=== PATIENT | male | born 1955 | race African-American/Black ===

== ENCOUNTER 2022-10-18 17:15 | Inpatient (IN) | payer MEDICAID ==
[~2022-10-18] VITALS: Ht 177.8 cm; Wt 119.4 kg
[~2022-10-18 17:15] MED LIST: FAMO20TA8 PO; FERR-63 PO; FURO40TA5 PO; HYDR-4135 PO; LIP40 PO; NEPVIT PO; POLY17PO3 PO; SENN1TAB35 PO; SEVE800T8 PO
[2022-10-18] MEDS ORDERED: LABETALOL 5MG/ML SYR 20 MG/4 ML SYRINGE IV ONE (18:15)
[2022-10-18] MEDS ORDERED: LABETALOL 5MG/ML SYR 20 MG/4 ML SYRINGE IV NR (20:45)
[2022-10-18 21:26] LABS: HEMATOCRIT. 26.3 % (42.0-52.0); HEMOGLOBIN. 8.5 g/dL (14.0-18.0); MEAN CORPUSCULAR HEMOGLOBIN 29.2 pg (28.0-32.0); MEAN CORPUSCULAR VOLUME 90.5 fL (80.0-94.0); MEAN PLATELET VOLUME 8.6 fl (7.4-10.4); PLATELET 179 x1000/uL (130-400); RED BLOOD CELL COUNT 2.91 mill/uL (4.7-6.1)
[2022-10-18 21:30] LABS: CHLORIDE 117 mEq/L (98-107)
[2022-10-18 22:19] LABS: PLATELET ESTIMATE NORMAL
[2022-10-19] VITALS (15 sets, daily range): BP systolic 117–192; BP diastolic 62–95
[2022-10-19] MEDS ORDERED: HYDRALAZINE 20MG/ML VIAL IV PRN (00:45)
[2022-10-19] MEDS ORDERED: NITROGLYCERIN OINT 1GM/INCH UDPKT TD NR (00:45)
[2022-10-19] MEDS ORDERED: DEXTROSE 50% WATER 50ML SYRINGE IV PRN (08:15)
[2022-10-19] MEDS: CLONIDINE 0.1MG TABLET PO PRN (09:06)
[2022-10-19] MEDS ORDERED: FUROSEMIDE 40MG/4ML VIAL IVP NR ×2 (10:30→15:00)
[2022-10-19] MEDS: BENAZEPRIL 10MG TABLET PO SCH ×2 (10:53→20:57)
[2022-10-19] MEDS: INSULIN LISPRO 100 UNITS/ML SUBCUT SCH ×3 (12:10→21:00)
[2022-10-19] MEDS: BLOOD SUGAR DIAGNOSTIC STRIP TEST SCH ×3 (12:28→21:24)
[2022-10-19] MEDS: SEVELAMER CARBONATE 800 MG TABLET PO SCH ×2 (13:19→17:34)
[2022-10-19] MEDS: DOCUSATE SODIUM 250MG CAPSULE PO SCH (17:34)
[2022-10-19] MEDS ORDERED: EPOETIN ALFA 2,000 UNIT/ML VIAL SUBCUT NR (21:00)
[2022-10-19] MEDS ORDERED: INFLUENZA VACCINE 05/PF 0.5 ML SYRINGE IM ONE (21:00)
[2022-10-20] VITALS: BP 150/65
[2022-10-20 00:42] LABS: HEPATITIS B SURFACE ANTIGEN NEGATIVE
[2022-10-20 04:00] VITALS: BP 141/65
[2022-10-20] MEDS: BLOOD SUGAR DIAGNOSTIC STRIP TEST SCH ×4 (06:02→20:18)
[2022-10-20] MEDS: INSULIN LISPRO 100 UNITS/ML SUBCUT SCH ×4 (06:13→20:18)
[2022-10-20] MEDS: SEVELAMER CARBONATE 800 MG TABLET PO SCH ×3 (07:10→18:27)
[2022-10-20 08:00] VITALS: BP 114/84
[2022-10-20] MEDS: FUROSEMIDE 40MG TABLET PO SCH ×2 (11:14→18:27)
[2022-10-20] MEDS: BENAZEPRIL 10MG TABLET PO SCH ×2 (11:14→20:32)
[2022-10-20] MEDS: DOCUSATE SODIUM 250MG CAPSULE PO SCH ×2 (11:14→18:27)
[2022-10-20 12:00] VITALS: BP 134/74
[2022-10-20 16:00] VITALS: BP 116/72
[2022-10-20 20:00] VITALS: BP 130/49
[2022-10-20] MEDS ORDERED: EPOETIN ALFA 2,000 UNIT/ML VIAL SUBCUT SCH (21:00)
[2022-10-21] VITALS: BP 128/62
[2022-10-21 04:00] VITALS: BP 130/49
[2022-10-21] MEDS: BLOOD SUGAR DIAGNOSTIC STRIP TEST SCH ×4 (05:42→20:42)
[2022-10-21] MEDS: INSULIN LISPRO 100 UNITS/ML SUBCUT SCH ×4 (05:42→20:43)
[2022-10-21] MEDS: SEVELAMER CARBONATE 800 MG TABLET PO SCH ×3 (06:14→17:27)
[2022-10-21 08:00] VITALS: BP 154/62
[2022-10-21] MEDS: DOCUSATE SODIUM 250MG CAPSULE PO SCH ×2 (09:38→17:27)
[2022-10-21] MEDS: BENAZEPRIL 10MG TABLET PO SCH ×2 (09:38→20:43)
[2022-10-21] MEDS: FUROSEMIDE 40MG TABLET PO SCH ×2 (09:38→17:27)
[2022-10-21 12:00] VITALS: BP 150/56
[2022-10-21 16:00] VITALS: BP 155/60
[2022-10-21] MEDS: DORZOLAMIDE 2% OPHTH 10 ML BOTTLE BOTHEYE SCH (17:27)
[2022-10-21] MEDS: TIMOLOL MALEATE 0.5% OPHTH DROPS 5ML EACHEYE SCH (17:27)
[2022-10-21 20:00] VITALS: BP 170/73
[2022-10-22] VITALS (8 sets, daily range): BP systolic 135–179; BP diastolic 51–89
[2022-10-22] MEDS: BLOOD SUGAR DIAGNOSTIC STRIP TEST SCH ×4 (06:03→21:09)
[2022-10-22] MEDS: INSULIN LISPRO 100 UNITS/ML SUBCUT SCH ×4 (06:03→21:00)
[2022-10-22] MEDS: SEVELAMER CARBONATE 800 MG TABLET PO SCH ×3 (08:48→17:28)
[2022-10-22] MEDS: FUROSEMIDE 40MG TABLET PO SCH ×2 (08:48→17:28)
[2022-10-22] MEDS: BENAZEPRIL 10MG TABLET PO SCH ×2 (08:48→21:00)
[2022-10-22] MEDS: DOCUSATE SODIUM 250MG CAPSULE PO SCH ×2 (08:48→17:28)
[2022-10-22] MEDS: DORZOLAMIDE 2% OPHTH 10 ML BOTTLE BOTHEYE SCH ×3 (08:49→17:29)
[2022-10-22] MEDS: TIMOLOL MALEATE 0.5% OPHTH DROPS 5ML EACHEYE SCH ×2 (08:49→21:09)
[2022-10-23] VITALS (12 sets, daily range): BP systolic 122–180; BP diastolic 39–91
[2022-10-23] MEDS: CLONIDINE 0.1MG TABLET PO PRN (03:22)
[2022-10-23] MEDS: INSULIN LISPRO 100 UNITS/ML SUBCUT SCH ×4 (05:54→21:21)
[2022-10-23] MEDS: BLOOD SUGAR DIAGNOSTIC STRIP TEST SCH ×4 (05:54→21:21)
[2022-10-23] MEDS: SEVELAMER CARBONATE 800 MG TABLET PO SCH ×3 (08:12→17:41)
[2022-10-23] MEDS: BENAZEPRIL 10MG TABLET PO SCH ×2 (09:30→21:21)
[2022-10-23] MEDS: DOCUSATE SODIUM 250MG CAPSULE PO SCH ×2 (09:30→17:41)
[2022-10-23] MEDS: FUROSEMIDE 40MG TABLET PO SCH ×2 (09:30→17:41)
[2022-10-23] MEDS: DORZOLAMIDE 2% OPHTH 10 ML BOTTLE BOTHEYE SCH ×3 (09:38→17:43)
[2022-10-23] MEDS: TIMOLOL MALEATE 0.5% OPHTH DROPS 5ML EACHEYE SCH ×2 (09:38→21:22)
[2022-10-24] VITALS (12 sets, daily range): BP systolic 116–166; BP diastolic 43–88
[2022-10-24] MEDS: BLOOD SUGAR DIAGNOSTIC STRIP TEST SCH ×2 (05:50→11:40)
[2022-10-24] MEDS: INSULIN LISPRO 100 UNITS/ML SUBCUT SCH ×2 (05:50→12:10)
[2022-10-24] MEDS: SEVELAMER CARBONATE 800 MG TABLET PO SCH ×2 (07:10→13:52)
[2022-10-24 08:55] LABS: EOSINOPHILS % 4.9 % (0.0-5.0); HEMATOCRIT. 25.7 % (42.0-52.0); HEMOGLOBIN. 8.5 g/dL (14.0-18.0); LYMPHOCYTES % 27.8 % (20.0-50.0); MEAN CORPUSCULAR HEMOGLOBIN 29.1 pg (28.0-32.0); MEAN CORPUSCULAR VOLUME 88.3 fL (80.0-94.0); MEAN PLATELET VOLUME 8.8 fl (7.4-10.4); MONOCYTES % 12.9 % (2.0-8.0); NEUTROPHILS % 53.4 % (40.0-76.0); PLATELET 214 x1000/uL (130-400); RED BLOOD CELL COUNT 2.91 mill/uL (4.7-6.1); RED CELL DISTRIBUTION WIDTH 16.4 % (11.6-14.6)
[2022-10-24] MEDS: DOCUSATE SODIUM 250MG CAPSULE PO SCH (08:57)
[2022-10-24] MEDS: DORZOLAMIDE 2% OPHTH 10 ML BOTTLE BOTHEYE SCH ×2 (08:57→13:48)
[2022-10-24] MEDS: FUROSEMIDE 40MG TABLET PO SCH (08:57)
[2022-10-24] MEDS: TIMOLOL MALEATE 0.5% OPHTH DROPS 5ML EACHEYE SCH (08:58)
[2022-10-24] MEDS: BENAZEPRIL 10MG TABLET PO SCH (09:00)
== END 2022-10-24 14:10 | disposition home or self-care (01) | DRG 720 ==
LOC: ER 18:29 → EDBEDREQTM 22:15 → EDBEDREQ 22:15 → 7EST 22:55 → EDBEDREQ 22:58 → ENRESERV 10-19 00:34
PROVIDERS: ADMIT Internal Medicine; ATTEND Internal Medicine
PROC: 5A1D70Z Performance of Urinary Filtration, Intermittent, Less than 6 Hours Per Day (ICD-10-PCS; principal; 2022-10-19)
PROC: 5A1D70Z Performance of Urinary Filtration, Intermittent, Less than 6 Hours Per Day (ICD-10-PCS; 2022-10-22)
PROC: 5A1D70Z Performance of Urinary Filtration, Intermittent, Less than 6 Hours Per Day (ICD-10-PCS; 2022-10-24)
DX: A41.89 Other specified sepsis (principal); J96.00 Acute respiratory failure, unspecified whether with hypoxia or hypercapnia; U07.1 COVID-19; I50.21 Acute systolic (congestive) heart failure; I13.2 Hypertensive heart and chronic kidney disease with heart failure and with stage 5 chronic kidney disease, or end stage renal disease; N18.6 End stage renal disease; E11.22 Type 2 diabetes mellitus with diabetic chronic kidney disease; R19.7 Diarrhea, unspecified; Z78.9 Other specified health status; Z91.119 Patient's noncompliance with dietary regimen due to unspecified reason; Z99.2 Dependence on renal dialysis; Z79.899 Other long term (current) drug therapy
CPT/HCPCS: 36415; 71045; 80048; 80053; 82962; 83880; 84145; 84484; 85025; 86705; 86706; 86709; 86803; 87340; 87426; 87804; 90686; 90935; 99291; C9803; J0360; J1815; J1940; J3490; U0003; U0005

== ENCOUNTER 2022-10-27 06:56 | Emergency (ER) | payer MEDICAID ==
[~2022-10-27] VITALS: Ht 177.8 cm; Wt 120.0 kg
[2022-10-27 10:09] LABS: EOSINOPHILS % 4.3 % (0.0-5.0); HEMATOCRIT. 27.9 % (42.0-52.0); HEMOGLOBIN. 8.8 g/dL (14.0-18.0); LYMPHOCYTES % 25.8 % (20.0-50.0); MEAN CORPUSCULAR HEMOGLOBIN 28.8 pg (28.0-32.0); MEAN PLATELET VOLUME 8.4 fl (7.4-10.4); MONOCYTES % 13.4 % (2.0-8.0); NEUTROPHILS % 55.5 % (40.0-76.0); PLATELET 240 x1000/uL (130-400); RED BLOOD CELL COUNT 3.07 mill/uL (4.7-6.1); RED CELL DISTRIBUTION WIDTH 17.3 % (11.6-14.6)
[2022-10-27 10:12] LABS: CHLORIDE 111 mEq/L (98-107)
[2022-10-27] MEDS ORDERED: IPRATROPIUM/ALBUTEROL 0.5-3(2.5)MG/3ML NEB HHN PRN (13:15)
[2022-10-27] MEDS ORDERED: ONDANSETRON HCL 4MG/2ML INJ IV PRN (13:15)
[2022-10-27] MEDS ORDERED: ACETAMINOPHEN 325MG TABLET PO PRN (13:15)
[2022-10-27] MEDS ORDERED: CLONIDINE 0.1MG TABLET PO PRN (13:15)
[2022-10-27] MEDS ORDERED: MAGNESIUM/ALUMINUM HYDROXIDE/SIMETHICONE 30ML UDC PO PRN (13:15)
[2022-10-27] MEDS ORDERED: ENOXAPARIN 30MG/0.3ML SYR SUBCUT SCH (15:00)
[2022-10-27] MEDS ORDERED: ENOXAPARIN 40MG/0.4ML SYR SUBCUT SCH ×2 (15:17→15:30)
[2022-10-27] MEDS ORDERED: FUROSEMIDE 40MG TABLET PO SCH (16:15)
[2022-10-27] MEDS ORDERED: FOLIC ACID/VITAMIN B COMP W-C TABLET PO SCH (16:15)
[2022-10-27] MEDS ORDERED: SEVELAMER CARBONATE 800 MG TABLET PO SCH (17:00)
[2022-10-27] MEDS ORDERED: SENNOSIDES/DOCUSATE SOD 8.6/50MG TABLET PO SCH (17:00)
[2022-10-27 18:15] VITALS: BP 166/76
[2022-10-27 18:45] VITALS: BP 175/72
[2022-10-27 19:15] VITALS: BP 173/76
[2022-10-27 19:45] VITALS: BP 161/82
[2022-10-27 20:14] VITALS: BP 136/80
[2022-10-27] MEDS ORDERED: EPOETIN ALFA-EPBX 4,000 UNIT/ML VIAL SUBCUT SCH (21:00)
[2022-10-27] MEDS ORDERED: FAMOTIDINE 20MG TABLET PO SCH (21:00)
[2022-10-27] MEDS ORDERED: ATORVASTATIN CALCIUM 40MG TABLET PO SCH (21:00)
[2022-10-27] MEDS ORDERED: HYDRALAZINE HCL 50MG TABLET PO SCH (22:00)
== END 2022-10-27 20:42 | disposition left against medical advice (07) ==
LOC: ER 06:56 → EDBEDREQ 08:53 → EDBEDREQTM 10:35 → EDBEDREQ 10:35 → EDBEDREQTM 12:49 → EDBEDREQ 12:49 → EDBEDREQTM 13:03 → ER 20:42 → CANBEDREQ 10-29 21:03
DX: I13.2 Hypertensive heart and chronic kidney disease with heart failure and with stage 5 chronic kidney disease, or end stage renal disease (principal); N18.6 End stage renal disease; U07.1 COVID-19; E11.22 Type 2 diabetes mellitus with diabetic chronic kidney disease; E87.8 Other disorders of electrolyte and fluid balance, not elsewhere classified; I50.9 Heart failure, unspecified; R53.1 Weakness; D64.9 Anemia, unspecified; J90 Pleural effusion, not elsewhere classified; R94.31 Abnormal electrocardiogram [ECG] [EKG]; Z99.2 Dependence on renal dialysis; E44.1 Mild protein-calorie malnutrition; Z68.38 Body mass index [BMI] 38.0-38.9, adult; Z79.84 Long term (current) use of oral hypoglycemic drugs; Z79.4 Long term (current) use of insulin
CPT/HCPCS: 36415; 71045; 80053; 83036; 83690; 83880; 84484; 85025; 87426; 93005; 96372; 99285; C9803; J1650; Z7610

== ENCOUNTER 2022-11-25 18:26 | Inpatient (IN) | payer MEDICAID ==
[~2022-11-25] VITALS: Ht 175.3 cm; Wt 116.7 kg
[2022-11-25 21:46] LABS: HEMATOCRIT. 30.5 % (42.0-52.0); HEMOGLOBIN. 9.9 g/dL (14.0-18.0); MEAN PLATELET VOLUME 8.6 fl (7.4-10.4); PLATELET 163 x1000/uL (130-400); RED BLOOD CELL COUNT 3.43 mill/uL (4.7-6.1); RED CELL DISTRIBUTION WIDTH 16.5 % (11.6-14.6)
[2022-11-25 21:57] LABS: CHLORIDE 98 mEq/L (98-107)
[2022-11-25 22:08] LABS: PLATELET ESTIMATE NORMAL
[2022-11-25] MEDS ORDERED: VANCOMYCIN 1GM PMX (XELLIA) 200 ML IV SCH (22:30)
[2022-11-25] MEDS ORDERED: CEFTAZIDIME PENTAHYDRATE 1 G in DEXTROSE 5% WATER 50 ML IV SCH (22:30)
[2022-11-25] MEDS ORDERED: VANCOMYCIN 1G PREMIX 200 ML IV NR (22:45)
[2022-11-26 10:00] VITALS: BP 104/67
[2022-11-26 11:15] VITALS: BP 104/56
[2022-11-26] MEDS ORDERED: ONDANSETRON HCL 4MG/2ML INJ IV PRN (12:45)
[2022-11-26] MEDS ORDERED: ACETAMINOPHEN 325MG TABLET PO PRN ×2 (12:45)
[2022-11-26] MEDS ORDERED: IPRATROPIUM/ALBUTEROL 0.5-3(2.5)MG/3ML NEB HHN PRN (12:45)
[2022-11-26] MEDS ORDERED: MAGNESIUM/ALUMINUM HYDROXIDE/SIMETHICONE 30ML UDC PO PRN (12:45)
[2022-11-26] MEDS ORDERED: CLONIDINE 0.1MG TABLET PO PRN (12:45)
[2022-11-26] MEDS ORDERED: ALBUTEROL (0.083%) 2.5MG/3ML NEB HHN PRN (13:00)
[2022-11-26] MEDS ORDERED: IPRATROPIUM BROMIDE (0.02%) 0.5MG/2.5ML NEB HHN PRN (13:00)
[2022-11-26 14:00] VITALS: BP 122/69
[2022-11-26] MEDS ORDERED: DEXTROSE 50% WATER 50ML SYRINGE IV PRN (15:45)
[2022-11-26 16:00] VITALS: BP 122/69
[2022-11-26] MEDS ORDERED: VANCOMYCIN 1G PREMIX 200 ML IV NR (17:00)
[2022-11-26] MEDS: ENOXAPARIN 40MG/0.4ML SYR SUBCUT SCH (17:52)
[2022-11-26] MEDS: BLOOD SUGAR DIAGNOSTIC STRIP TEST SCH ×2 (17:53→21:00)
[2022-11-26] MEDS: INSULIN LISPRO 100 UNITS/ML SUBCUT SCH ×2 (17:55→21:00)
[2022-11-26 18:00] VITALS: BP 122/69
[2022-11-26 20:00] VITALS: BP 136/57
[2022-11-27] VITALS (11 sets, daily range): BP systolic 114–159; BP diastolic 50–85
[2022-11-27] MEDS: OMEPRAZOLE 20MG CAPSULE EXTENDED RELEASE PO SCH (07:14)
[2022-11-27] MEDS: BLOOD SUGAR DIAGNOSTIC STRIP TEST SCH ×4 (07:48→21:12)
[2022-11-27] MEDS: INSULIN LISPRO 100 UNITS/ML SUBCUT SCH ×4 (07:48→21:00)
[2022-11-27 07:49] LABS: BASOPHILS % 1.3 % (0.0-2.0); EOSINOPHILS % 4.2 % (0.0-5.0); HEMATOCRIT. 30.7 % (42.0-52.0); HEMOGLOBIN. 10.4 g/dL (14.0-18.0); LYMPHOCYTES % 25.8 % (20.0-50.0); MEAN CORPUSCULAR HEMOGLOBIN 32.1 pg (28.0-32.0); MEAN CORPUSCULAR VOLUME 94.5 fL (80.0-94.0); MEAN PLATELET VOLUME 9.2 fl (7.4-10.4); MONOCYTES % 13.1 % (2.0-8.0); NEUTROPHILS % 55.6 % (40.0-76.0); PLATELET 142 x1000/uL (130-400); RED BLOOD CELL COUNT 3.24 mill/uL (4.7-6.1); RED CELL DISTRIBUTION WIDTH 16.4 % (11.6-14.6)
[2022-11-27 08:29] LABS: CHLORIDE 102 mEq/L (98-107)
[2022-11-27 08:42] LABS: HDL CHOLESTEROL 42 mg/dL (40-59); LDL CHOLESTEROL 60 mg/dL (5-100); PHOSPHORUS 5.5 mg/dL (2.5-4.9); T4 FREE 1.19 ng/dL (0.76-1.46)
[2022-11-27] MEDS: FUROSEMIDE 40MG TABLET PO SCH (09:52)
[2022-11-27] MEDS: ENOXAPARIN 40MG/0.4ML SYR SUBCUT SCH (14:49)
[2022-11-28] VITALS (15 sets, daily range): BP systolic 102–155; BP diastolic 51–75
[2022-11-28 06:12] LABS: HEMATOCRIT 28.9 % (42.0-52.0); HEMOGLOBIN 9.5 g/dL (14.0-18.0); MEAN CORPUSCULAR HEMOGLOBIN 29.1 pg (28.0-32.0); MEAN CORPUSCULAR VOLUME 88.5 fL (80.0-94.0); PLATELET 154 x1000/uL (130-400); RED BLOOD CELL COUNT 3.27 mill/uL (4.7-6.1); RED CELL DISTRIBUTION WIDTH 16.7 % (11.6-14.6)
[2022-11-28 06:28] LABS: PHOSPHORUS 5.9 mg/dL (2.5-4.9)
[2022-11-28] MEDS: OMEPRAZOLE 20MG CAPSULE EXTENDED RELEASE PO SCH (07:03)
[2022-11-28] MEDS: BLOOD SUGAR DIAGNOSTIC STRIP TEST SCH ×2 (07:04→12:55)
[2022-11-28] MEDS: INSULIN LISPRO 100 UNITS/ML SUBCUT SCH ×2 (08:10→12:56)
[2022-11-28] MEDS ORDERED: VANCOMYCIN 750MG PREMIX 150 ML IV NR (09:00)
[2022-11-28] MEDS: FUROSEMIDE 40MG TABLET PO SCH (09:08)
[2022-11-28] MEDS ORDERED: LIDOCAINE HCL 1% 10 MG/ML 10ML VIAL ONE ×2 (11:59→13:04)
[2022-11-28 12:27] LABS: PARTIAL THROMBOPLASTIN TIME 28.4 sec (23.4-31.0); PROTHROMBIN TIME 11.1 sec (9.6-11.0)
[2022-11-28] MEDS ORDERED: FENTANYL CITRATE/PF 50MCG/ML 2ML VIAL IV NR (12:40)
[2022-11-28] MEDS ORDERED: FENTANYL CITRATE/PF 50MCG/ML 2ML VIAL ONE (12:40)
[2022-11-28] MEDS: ENOXAPARIN 40MG/0.4ML SYR SUBCUT SCH (14:00)
[2022-11-28] MEDS ORDERED: SULF1TAB48 MT (16:08)
== END 2022-11-28 17:37 | disposition home or self-care (01) | DRG 721 ==
LOC: ER 18:26 → 7WST 23:21 → EDBEDREQ 23:41 → EDBEDREQTM 23:41
PROVIDERS: ADMIT Internal Medicine; ATTEND Internal Medicine
PROC: 5A1D70Z Performance of Urinary Filtration, Intermittent, Less than 6 Hours Per Day (ICD-10-PCS; 2022-11-27)
PROC: 0JH63XZ Insertion of Tunneled Vascular Access Device into Chest Subcutaneous Tissue and Fascia, Percutaneous Approach (ICD-10-PCS; principal; 2022-11-28)
PROC: 02HV33Z Insertion of Infusion Device into Superior Vena Cava, Percutaneous Approach (ICD-10-PCS; 2022-11-28)
PROC: B5181ZA Fluoroscopy of Superior Vena Cava using Low Osmolar Contrast, Guidance (ICD-10-PCS; 2022-11-28)
PROC: B548ZZA Ultrasonography of Superior Vena Cava, Guidance (ICD-10-PCS; 2022-11-28)
PROC: 05PYX3Z Removal of Infusion Device from Upper Vein, External Approach (ICD-10-PCS; 2022-11-28)
DX: T80.211A Bloodstream infection due to central venous catheter, initial encounter (principal); I13.2 Hypertensive heart and chronic kidney disease with heart failure and with stage 5 chronic kidney disease, or end stage renal disease; E11.41 Type 2 diabetes mellitus with diabetic mononeuropathy; I42.9 Cardiomyopathy, unspecified; D63.8 Anemia in other chronic diseases classified elsewhere; E11.319 Type 2 diabetes mellitus with unspecified diabetic retinopathy without macular edema; N18.6 End stage renal disease; E78.5 Hyperlipidemia, unspecified; H54.61 Unqualified visual loss, right eye, normal vision left eye; E11.22 Type 2 diabetes mellitus with diabetic chronic kidney disease; Z20.822 Contact with and (suspected) exposure to COVID-19; E11.51 Type 2 diabetes mellitus with diabetic peripheral angiopathy without gangrene; I50.9 Heart failure, unspecified; I89.0 Lymphedema, not elsewhere classified; Z79.4 Long term (current) use of insulin; E66.9 Obesity, unspecified; Z68.38 Body mass index [BMI] 38.0-38.9, adult; Z99.2 Dependence on renal dialysis; Y84.1 Kidney dialysis as the cause of abnormal reaction of the patient, or of later complication, without mention of misadventure at the time of the procedure; Y92.89 Other specified places as the place of occurrence of the external cause
CPT/HCPCS: 36415; 36558; 36589; 71045; 76937; 77001; 80048; 80053; 80061; 80202; 82962; 83036; 83605; 83735; 83880; 84100; 84145; 84439; 84443; 84484; 85025; 85027; 87070; 87426; 90935; 93005; 93306; 97162; 97165; 99152; 99153; 99285; C1750; C1769; C1887; C1893; C9803; J0713; J1642; J1650; J3010; J3370; J3490; J7060; G0500

== ENCOUNTER 2023-01-20 12:00 | Inpatient (IN) | payer MEDICARE, MEDICAID ==
[~2023-01-20] VITALS: Ht 177.8 cm; Wt 118.4 kg
[~2023-01-20 12:00] MED LIST changes: +SULF1TAB48 MT
[2023-01-20 14:59] LABS: HEMATOCRIT. 31.2 % (42.0-52.0); HEMOGLOBIN. 10.2 g/dL (14.0-18.0); MEAN CORPUSCULAR HEMOGLOBIN 29.8 pg (28.0-32.0); MEAN PLATELET VOLUME 8.4 fl (7.4-10.4); PLATELET 139 x1000/uL (130-400); RED BLOOD CELL COUNT 3.43 mill/uL (4.7-6.1)
[2023-01-20 15:14] LABS: CHLORIDE 102 mEq/L (98-107)
[2023-01-20 15:40] LABS: PARTIAL THROMBOPLASTIN TIME 29.3 sec (23.4-31.0); PROTHROMBIN TIME 11.2 sec (9.6-11.0)
[2023-01-20 17:48] LABS: PLATELET ESTIMATE NORMAL
[2023-01-20 21:54] VITALS: BP 141/69
[2023-01-20 22:02] VITALS: BP 141/69
[2023-01-20] MEDS ORDERED: ACETAMINOPHEN 325MG TABLET PO PRN (22:45)
[2023-01-20] MEDS ORDERED: ONDANSETRON HCL 4MG/2ML INJ IV PRN (22:45)
[2023-01-20] MEDS ORDERED: NALOXONE HCL 0.4MG/ML VIAL IV PRN (23:00)
[2023-01-21 00:01] VITALS: BP 129/80
[2023-01-21 04:00] VITALS: BP 120/59
[2023-01-21] MEDS: HYDRALAZINE HCL 50MG TABLET PO SCH ×2 (05:29→13:44)
[2023-01-21 07:20] LABS: BASOPHILS % 0.8 % (0.0-2.0); EOSINOPHILS % 6.6 % (0.0-5.0); HEMATOCRIT. 30.5 % (42.0-52.0); HEMOGLOBIN. 10.1 g/dL (14.0-18.0); LYMPHOCYTES % 24.8 % (20.0-50.0); MEAN CORPUSCULAR HEMOGLOBIN 30.3 pg (28.0-32.0); MEAN CORPUSCULAR VOLUME 91.4 fL (80.0-94.0); NEUTROPHILS % 53.8 % (40.0-76.0); PLATELET 143 x1000/uL (130-400); RED BLOOD CELL COUNT 3.34 mill/uL (4.7-6.1); RED CELL DISTRIBUTION WIDTH 17.4 % (11.6-14.6)
[2023-01-21] MEDS: HYDROCODONE/ACETAMINOPHEN 5/325MG TABLET PO PRN ×2 (07:22→13:44)
[2023-01-21] MEDS ORDERED: LIDOCAINE HCL 1% 10 MG/ML 10ML VIAL ONE (07:29)
[2023-01-21 08:02] LABS: PHOSPHORUS 4.5 mg/dL (2.5-4.9)
[2023-01-21] MEDS ORDERED: FOLIC ACID/VITAMIN B COMP W-C TABLET PO SCH (09:00)
[2023-01-21] MEDS ORDERED: FUROSEMIDE 40MG TABLET PO SCH (09:00)
[2023-01-21] MEDS: SEVELAMER CARBONATE 800 MG TABLET PO SCH ×3 (11:18→18:14)
[2023-01-21] MEDS: DOCUSATE SODIUM 250MG CAPSULE PO SCH ×2 (11:18→18:14)
[2023-01-21 12:00] VITALS: BP 161/67
[2023-01-21 16:00] VITALS: BP 145/70
[2023-01-21 17:50] VITALS: BP 150/70
[2023-01-21] MEDS ORDERED: ATORVASTATIN CALCIUM 40MG TABLET PO SCH (21:00)
[2023-01-21] MEDS ORDERED: FAMOTIDINE 20MG TABLET PO SCH (21:00)
== END 2023-01-21 19:00 | disposition home or self-care (01) | DRG 466 ==
LOC: ER 12:00 → 7WST 17:39
PROVIDERS: ADMIT Internal Medicine; ATTEND Internal Medicine
PROC: 0JH63XZ Insertion of Tunneled Vascular Access Device into Chest Subcutaneous Tissue and Fascia, Percutaneous Approach (ICD-10-PCS; principal; 2023-01-21)
PROC: 02HV33Z Insertion of Infusion Device into Superior Vena Cava, Percutaneous Approach (ICD-10-PCS; 2023-01-21)
PROC: B5181ZA Fluoroscopy of Superior Vena Cava using Low Osmolar Contrast, Guidance (ICD-10-PCS; 2023-01-21)
PROC: 0JPT3XZ Removal of Tunneled Vascular Access Device from Trunk Subcutaneous Tissue and Fascia, Percutaneous Approach (ICD-10-PCS; 2023-01-21)
PROC: 02PYX3Z Removal of Infusion Device from Great Vessel, External Approach (ICD-10-PCS; 2023-01-21)
DX: T82.41XA Breakdown (mechanical) of vascular dialysis catheter, initial encounter (principal); N18.6 End stage renal disease; I13.2 Hypertensive heart and chronic kidney disease with heart failure and with stage 5 chronic kidney disease, or end stage renal disease; E11.22 Type 2 diabetes mellitus with diabetic chronic kidney disease; D63.1 Anemia in chronic kidney disease; D72.819 Decreased white blood cell count, unspecified; I50.9 Heart failure, unspecified; Z20.822 Contact with and (suspected) exposure to COVID-19; E66.9 Obesity, unspecified; Z99.2 Dependence on renal dialysis; Z68.37 Body mass index [BMI] 37.0-37.9, adult; Z88.2 Allergy status to sulfonamides; Z79.899 Other long term (current) drug therapy; Y71.2 Prosthetic and other implants, materials and accessory cardiovascular devices associated with adverse incidents; Y92.89 Other specified places as the place of occurrence of the external cause
CPT/HCPCS: 36415; 36581; 71045; 77001; 80048; 80053; 83880; 84100; 84484; 85025; 87426; 93005; 99285; C1750; C1769; C9803; J1642; J3490